=== PATIENT | male | born 1970 | race Caucasian/White ===

== ENCOUNTER 2017-02-22 22:12 | Emergency (ER) | payer OTHER ==
[~2017-02-22] VITALS: Ht 165.1 cm; Wt 102.0 kg
--- NOTE | ~2017-02-22 | CR93 ---
[facility]. [facility] A Service of [facility] RADIOLOGY TEXT RESULTS PATIENT: GRANT ROONEY LOCATION: SED : 72 UNIT #: [id number] AGE: [address]: TARUN ROSADO SEX: M ORDER DR: [id number] [place] [address] [id number] E MR#: [id number] Acc #: [id number] NAME: GRANT ROONEY. : 1970 SEX: M STUDY DATE/TIME: 02/23/2017 01:05 UNIT: SED ROOM: STUDY DESCRIPTION: CR Elbow Min 3 Views Lt Attending Physician: Tarun Rosado Ordering Physician: Physician Non-Staff Primary Care Physician: Clay Montague M.D. MEDICAL IMAGING REPORT This report is preliminary unless electronic signature is present. EXAM Left elbow 02/23 0105 hours INDICATION Chronic elbow pain, but symptoms have worsened yesterday. No trauma. FINDINGS AP and lateral examination of the elbow shows satisfactory articulation of the humerus with the proximal radius and ulna. There is no identifiable fracture, dislocation, joint effusion, or radiopaque foreign body in the soft tissues. IMPRESSION Normal elbow. Dictated by... Raul Cornell Jr., M.D. THIS IS AN ELECTRONICALLY VERIFIED REPORT Raul Cornell Jr., M.D. at 02/24/2017 4:22 AM KIMBERLY/payton TD: 02/23/2017 07:49 JOB #: [id number] MEDICAL IMAGING REPORT Page 1 of 1
[~2017-02-22 22:12] MED LIST: ACETAMINOPHEN PO; ALBUTEROL17 G1; ALBUTEROL17 G1 INH; ALBUTEROL17 GM INH; ALL DAY ALLERGY10 MG PO; ALPRAZOLAM PO; ALPRAZOLAM0.5 MG PO; ATENOLOL PO; ATENOLOL25 MG PO; AURALGAN OTIC S10 ML AD; B/P MED; CETIRIZINE PO; DESYREL50 M1; FERROUS SULFATE PO; FLEXERIL10 MG PO; FLOVENT HFA12 GM INH; HALCION PO; HALCION0.125 MG PO; IBUPROFEN600 MG PO; IRON1 TA1 PO; KEFLEX PO; KETOPROFEN PO; LIDOCAINE VISCOUS TOP; LISINOPRIL1 GM; LORTAB 7.51 TAB 7.5/ PO; MUCINEX DM1 TAB.SR . PO; NAPROSYN500 MG PO; NO MEDICATIONS; OMEPRAZOLE PO; OMEPRAZOLE20 M2 PO; ORUDIS75 M1 DOB; PREDNISONE PO; PRILOSEC40 MG; TRAZODONE PO; TRIAZOLAM PO; VIT D2; VITAMIN 3 PO; VITAMIN D2 PO; XANAX0.5 MG PO; ZITHROMAX PO; ZYRTEC PO; ZYRTEC10 M2 PO; [UNRECOGNIZED DRUG - REMARK]
== END 2017-02-23 02:06 | disposition home or self-care (01) ==
LOC: SED 22:12
DX: S50.02XA Contusion of left elbow, initial encounter (principal); Z90.49 Acquired absence of other specified parts of digestive tract; Z88.0 Allergy status to penicillin; F17.290 Nicotine dependence, other tobacco product, uncomplicated; Z79.899 Other long term (current) drug therapy; W22.8XXA Striking against or struck by other objects, initial encounter
CPT/HCPCS: 29260; 73080; 99283